=== PATIENT | male | born 1985 | race Caucasian/White ===

== ENCOUNTER 2021-08-06 15:21 | Inpatient (IN) | payer OTHER ==
[~2021-08-06] VITALS: Ht 180.3 cm; Wt 90.7 kg
[~2021-08-06 15:21] MED LIST: ADVIL200 MG PO; AUGMENTIN875 MG PO; BACLOFEN 10MG T10 MG PO; BUDESONIDE EC3 MG PO; COLACE100 MG PO; NEURONTIN300 MG PO; NORCO 5-325 TA1 EACH PO; PEPCID AC20 MG PO; PREDNISONE 20MG20 MG PO; PROTONIX 40MG T40 MG PO; SENNA S TABLET1 EACH PO
[2021-08-06 16:34] LABS: BASOPHIL 0.1 % (0-2); EOSINOPHIL 0.4 % (0-5); HCT 46.5 % (42.0-52.0); HGB 15.9 g/dl (13.2-18.0); LYMPHOCYTE 11.8 % (15-48); MCH 29.3 pg (25.0-31.0); MCHC 34.2 g/dL (32.0-36.0); MCV 85.6 fL (78.0-100.0); MONOCYTE 6.2 % (0-12); MPV 9.5 fL (6.0-9.5); NEUTROPHIL 81.2 % (41-80); NRBC 0; PLT 257 K/uL (150-400); RBC 5.43 M/uL (4.70-6.00); RDW 12.4 % (11.5-14.0); WBC 11.1 K/uL (4.0-10.5)
[2021-08-06 16:46] LABS: ALBUMIN 4.2 g/dL (3.4-5.0); BILIRUBIN - TOTAL 0.6 mg/dL (0.2-1.0); BUN/CREAT RATIO (CALC) 15.7 RATIO; C-REACTIVE PROTEIN 0.2 mg/dL (<=0.90); CREATININE 0.83 mg/dL (0.67-1.17); GLOBULIN (CALCULATION) 3.7 g/dL; POTASSIUM 3.9 mmol/L (3.5-5.1); TOTAL PROTEIN 7.9 g/dL (6.4-8.2)
[2021-08-06 16:47] LABS: LACTIC ACID 0.8 mmol/L (0.4-1.9)
[2021-08-06 17:30] LABS: BILIRUBIN NEGATIVE (NEGATIVE); BLOOD TRACE-INTACT Ery/uL (NEGATIVE); CLARITY CLEAR (CLEAR); COLOR YELLOW (YELLOW); GLUCOSE (U) NORMAL (NORMAL); LEUKOCYTES NEGATIVE Leu/uL (NEGATIVE); NITRITE NEGATIVE (NEGATIVE); PROTEIN NEGATIVE (NEGATIVE); SPECIFIC GRAVITY 1.025 (1.001-1.030); UROBILINOGEN 0.2 mg/dL (0.2-1.0)
[2021-08-06 17:45] LABS: BACTERIA TRACE
[2021-08-07 06:38] LABS: BASOPHIL 0 % (0-2); EOSINOPHIL 0 % (0-5); HCT 41.7 % (42.0-52.0); HGB 14.1 g/dl (13.2-18.0); LYMPHOCYTE 10.8 % (15-48); MCH 29.5 pg (25.0-31.0); MCHC 33.8 g/dL (32.0-36.0); MCV 87.2 fL (78.0-100.0); MONOCYTE 1.8 % (0-12); MPV 9.5 fL (6.0-9.5); NEUTROPHIL 87.3 % (41-80); NRBC 0; PLT 229 K/uL (150-400); RBC 4.78 M/uL (4.70-6.00); RDW 12.3 % (11.5-14.0); WBC 8.3 K/uL (4.0-10.5)
[2021-08-07] MEDS ORDERED: ADDERALL 20 MG20 MG PO (06:55)
[2021-08-07 07:07] LABS: ALBUMIN 3.5 g/dL (3.4-5.0); BILIRUBIN - TOTAL 0.6 mg/dL (0.2-1.0); BUN/CREAT RATIO (CALC) 15.5 RATIO; C-REACTIVE PROTEIN 0.3 mg/dL (<=0.90); CREATININE 0.84 mg/dL (0.67-1.17); GLOBULIN (CALCULATION) 3.3 g/dL; POTASSIUM 4.6 mmol/L (3.5-5.1); TOTAL PROTEIN 6.8 g/dL (6.4-8.2)
[2021-08-08 06:13] LABS: BASOPHIL 0.1 % (0-2); EOSINOPHIL 0.2 % (0-5); HCT 37.9 % (42.0-52.0); HGB 12.4 g/dl (13.2-18.0); LYMPHOCYTE 28.2 % (15-48); MCH 29.2 pg (25.0-31.0); MCHC 32.7 g/dL (32.0-36.0); MCV 89.4 fL (78.0-100.0); MONOCYTE 6.9 % (0-12); MPV 9.4 fL (6.0-9.5); NEUTROPHIL 64.3 % (41-80); NRBC 0; PLT 194 K/uL (150-400); RBC 4.24 M/uL (4.70-6.00); RDW 12.4 % (11.5-14.0); WBC 9.6 K/uL (4.0-10.5)
[2021-08-08 06:41] LABS: BUN 21 mg/dL (7-18); BUN/CREAT RATIO (CALC) 20.6 RATIO; CHLORIDE 103 mmol/L (98-107); CO2 (BICARBONATE) 30 mmol/L (21-32); CREATININE 1.02 mg/dL (0.67-1.17); GLUCOSE 103 mg/dL (74-106)
[2021-08-08 07:08] LABS: C-REACTIVE PROTEIN < 0.20 mg/dL (<=0.90)
[2021-08-09 06:21] LABS: BASOPHIL 0.1 % (0-2); EOSINOPHIL 0.2 % (0-5); HCT 37.5 % (42.0-52.0); HGB 12.5 g/dl (13.2-18.0); LYMPHOCYTE 28.1 % (15-48); MCH 29.3 pg (25.0-31.0); MCHC 33.3 g/dL (32.0-36.0); MCV 87.8 fL (78.0-100.0); MONOCYTE 8.7 % (0-12); MPV 9.6 fL (6.0-9.5); NEUTROPHIL 62.8 % (41-80); NRBC 0; PLT 194 K/uL (150-400); RBC 4.27 M/uL (4.70-6.00); RDW 12.1 % (11.5-14.0); WBC 8.6 K/uL (4.0-10.5)
[2021-08-09 06:51] LABS: BUN/CREAT RATIO (CALC) 15.9 RATIO; CREATININE 1.07 mg/dL (0.67-1.17); PHOSPHORUS 3.4 mg/dL (2.6-4.7)
[2021-08-09] MEDS ORDERED: NORCO 5-325 TA1 EACH PO (16:34)
[2021-08-09] MEDS ORDERED: ONDANSETRON ODT4 MG PO (16:34)
== END 2021-08-09 17:05 | disposition home or self-care (01) | DRG 387 ==
LOC: FER 15:21 → FMS 18:32
PROVIDERS: Emergency Medicine; Nurse Practitioner; ADMIT Internal Medicine
DX: K50.012 Crohn's disease of small intestine with intestinal obstruction (principal); Z20.822 Contact with and (suspected) exposure to COVID-19; F90.9 Attention-deficit hyperactivity disorder, unspecified type; Z28.310 Unvaccinated for COVID-19; Z90.49 Acquired absence of other specified parts of digestive tract; Z79.899 Other long term (current) drug therapy
CPT/HCPCS: 36415; 74018; 74250; 80048; 80053; 81001; 83605; 83690; 83735; 84100; 84145; 85025; 86140; C9113; J1170; J1650; J1885; J2405; J2930; J3480; J7030; Q9967; U0002